=== PATIENT | female | born 1940 | race Caucasian/White ===

== ENCOUNTER 2020-08-11 12:55 | Emergency (ER) | payer MEDICARE ==
[~2020-08-11] VITALS: Ht 167.6 cm; Wt 75.5 kg
--- NOTE | 2020-08-11 15:17 | NUR ---
INFORMED PA GARRETT PT'S BP 200/73.
--- NOTE | 2020-08-11 16:13 | NUR ---
Vascular study of the lower extremity is being completed at this time.
--- NOTE | 2020-08-11 16:34 | NUR ---
FREEMAN Morales is aware of the elevated BP, no new orders at this time due to the patient's bradycardic heart rate.
[2020-08-11] MEDS ORDERED: enoxaparin 100mg/ml syringe SUBCUT ONE (16:35)
[2020-08-11] MEDS ORDERED: ENOX40SY7 SUBCUT (16:38)
[2020-08-11] MEDS ORDERED: enoxaparin 80mg/0.8ml syringe SUBCUT ONE (16:40)
[2020-08-11 16:59] VITALS: BP 196/82
--- NOTE | 2020-08-11 17:00 | NUR ---
juan aguilar aware of increased bp pt stable to be discharged
== END 2020-08-11 17:02 | disposition home or self-care (01) ==
LOC: ER 12:55
DX: I82.402 Acute embolism and thrombosis of unspecified deep veins of left lower extremity (principal); I10 Essential (primary) hypertension; R60.0 Localized edema; Z85.9 Personal history of malignant neoplasm, unspecified; Z98.890 Other specified postprocedural states; Z88.0 Allergy status to penicillin
CPT/HCPCS: 93970; 99285; J1650

== ENCOUNTER 2022-05-06 12:50 | Outpatient (CLI) | payer MEDICARE ==
[~2022-05-06 12:50] MED LIST: ENOX40SY7 SUBCUT
== END 2022-05-06 23:59 | disposition home or self-care (01) ==
LOC: VAS 12:50
PROVIDERS: ATTEND Family Medicine
DX: I82.402 Acute embolism and thrombosis of unspecified deep veins of left lower extremity (principal); M79.89 Other specified soft tissue disorders
CPT/HCPCS: 93971